=== PATIENT | female | born 1990 | race Two or more races ===

== ENCOUNTER 2018-11-03 21:07 | Emergency (ER) | payer OTHER ==
[~2018-11-03] VITALS: Ht 162.6 cm; Wt 81.8 kg
[2018-11-03 21:08] VITALS: BP 141/79
[2018-11-03] MEDS ORDERED: LAMO100T80 PO (22:15)
[2018-11-03] MEDS ORDERED: ADACEL/BOOSTRIX VACCINE (DIPHTH/PERTUSS/ACELL/TETANUS)0.5ML SYR (90715) IM ONE (22:15)
[2018-11-03] MEDS ORDERED: NEOSPORIN OINT 0.9 GM PKT (FLOOR STOCK) TOP ONE (22:30)
[2018-11-03] MEDS ORDERED: LIDOCAINE 2% MDV 20 ML VIAL SC ONE (22:30)
== END 2018-11-04 00:03 | disposition home or self-care (01) ==
LOC: M ED 21:07
DX: S61.210A Laceration without foreign body of right index finger without damage to nail, initial encounter (principal); W27.8XXA Contact with other nonpowered hand tool, initial encounter; Y93.D2 Activity, sewing; Y92.9 Unspecified place or not applicable; F31.9 Bipolar disorder, unspecified; Z79.899 Other long term (current) drug therapy

== ENCOUNTER 2020-06-12 21:09 | Inpatient (IN) | payer OTHER ==
[~2020-06-12] VITALS: Ht 162.6 cm; Wt 87.8 kg
[~2020-06-12 21:09] MED LIST: LAMO100T80 PO
[2020-06-12] MEDS ORDERED: LIDOCAINE W/EPINEPHRINE 1% 20ML VIAL SC ONE (21:25)
[2020-06-12] MEDS ORDERED: LORazepam 2 MG/ML VIAL As Ordered ONE (21:32)
[2020-06-12] MEDS ORDERED: LORazepam 2 MG/ML VIAL IV STA ×3 (21:32→21:55)
[2020-06-12 22:24] LABS: HEMATOCRIT 35.8 % (36.0-47.0); HEMOGLOBIN 11.1 g/dl (12.0-15.5); MEAN CORPUSCULAR HEMOGLOBIN 27.5 pg (27.0-33.0); MEAN CORPUSCULAR VOLUME 88.6 fl (80.0-96.0); PLATELET COUNT, AUTOMATED 272 10^3/uL (150-450); RED BLOOD COUNT 4.04 10^6/uL (4.00-5.40); WHITE BLOOD COUNT 6.2 10^3/uL (4.0-10.0)
[2020-06-12 22:58] LABS: ACETAMINOPHEN LEVEL < 2.0 UG/ML (10.0-30.0); ALBUMIN 3.8 GM/DL (3.2-5.2); ALT/SGPT 36 U/L (12-78); BILIRUBIN,DIRECT < 0.1 MG/DL (0.0-0.2); BILIRUBIN,TOTAL 0.4 MG/DL (0.2-1.0); BLOOD UREA NITROGEN 5 MG/DL (7-18); CALCIUM LEVEL 8.6 MG/DL (8.5-10.1); CARBON DIOXIDE LEVEL 24 MEQ/L (21-32); CHLORIDE LEVEL 112 MEQ/L (98-107); CREATININE FOR GFR 0.52 MG/DL (0.55-1.30); ETHYL ALCOHOL (ETHANOL) 0.096 % (0.000-0.010); GLOMERULAR FILTRATION RATE > 60.0 (>60); GLUCOSE, FASTING 93 MG/DL (70-100); SALICYLATE LEVEL < 1.7 MG/DL (5.0-30.0); SODIUM LEVEL 144 MEQ/L (136-145); THYROID STIMULATING HORMONE 0.702 uIU/ML (0.358-3.740); TOTAL PROTEIN 7.1 GM/DL (6.4-8.2)
[2020-06-12 23:01] LABS: HCG, SERUM QUALITATIVE NEGATIVE (NEGATIVE)
[2020-06-12 23:56] LABS: AMPHETAMINES LEVEL URINE NEGATIVE (NEGATIVE); BARBITURATES URINE NEGATIVE (NEGATIVE); BENZODIAZEPINES URINE NEGATIVE (NEGATIVE); CANNABINOIDS URINE NEGATIVE (NEGATIVE); COCAINE METABOLITE URINE NEGATIVE (NEGATIVE); METHADONE URINE NEGATIVE (NEGATIVE); OPIATES URINE NEGATIVE (NEGATIVE); PHENCYCLIDINE URINE NEGATIVE (NEGATIVE)
[2020-06-13] MEDS ORDERED: LAMI25TA PO (13:10)
[2020-06-13] MEDS ORDERED: LAMO200T3 PO (13:10)
--- NOTE | 2020-06-13 15:28 | ECGEPIP ---
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
[2020-06-13] MEDS ORDERED: MAALOX 30 ML SUSP *UDC PO PRN (16:10)
[2020-06-13] MEDS ORDERED: traZODone 50 MG TAB PO PRN (16:10)
[2020-06-13] MEDS ORDERED: MOM 30ML SUSPENSION UDC PO PRN (16:10)
[2020-06-13] MEDS ORDERED: MULT1CHW29 PO (16:17)
[2020-06-14 06:00] VITALS: BP 138/72
--- NOTE | 2020-06-14 12:35 | MHHPE ---
[facility] HISTORY AND PHYSICAL DATE OF ADMISSION: 06/13/2020 IDENTIFYING DATA: She is a 30-year-old female, , living with her with a spouse who is active-duty soldier. She works at [employer]. Was admitted for possible suicide attempt. CHIEF COMPLAINT: "I cut my wrist. We had an argument." HISTORY OF PRESENT ILLNESS: Patient was picked up on the roadside with her slit right wrist with a slip box changer, which she had wrapped, and she was brought to the hospital. Patient reports she had an argument with her . She found a few pictures of girls on his phone, got upset. She wanted to go and see her family in [place]. Her was to drop her at the airport in [place]. On the way, there was an argument again. She got down from the car, started walking, and the police came and found her and was brought to the hospital. She has history of bipolar disorder. She was on Lamictal 225 mg once daily. She stopped taking her medication for about 2 weeks. She reports she has been depressed for the last 5-6 months. She feels hopeless and helpless at times. She has a history of mood swings. When she is in her manic episode, she cleans her house, buys a lot of things. She takes her dog for a walk for hours. PAST PSYCHIATRIC HISTORY: This is her first psychiatric hospitalization. She had suicide attempt when she was an 20-year-old. She overdosed on pills; however, patient has self-mutilation. She has habit of cutting her arm. DRUG/ALCOHOL HISTORY: Patient drinks alcohol once a week, about four cans of beer. Patient drank alcohol this time before she cut her arm. MEDICAL HISTORY: Denied medical problems. FAMILY HISTORY: Denies family history of mental illness. PERSONAL HISTORY: She was raised by her grandmother mostly and sometimes by her mother. She has high school degree. 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 Denies any physical or sexual abuse. MENTAL STATUS EXAMINATION: Casually dressed in hospital gown. Cooperative, very labile. Mood is depressed. Psychomotor activity is retarded. Speech rate, rhythm, volume are good. Thought process linear, goal directed. Thought content: Denies any suicidal or homicidal ideas. Denied any hallucinations. VITAL SIGNS: Pulse is 97.4, respiratory rate is 63, blood pressure is 138/72, respiratory rate is 18, pulse oximetry is 100. LABORATORY DATA: CBC within normal limits. Chemistry within normal limits. Blood alcohol was high.. REVIEW OF SYSTEMS: CONSTITUTIONAL: No night sweats, no weight loss, no fever. HEENT: Negative for epistaxis, headache, hearing loss. RESPIRATORY: No cough. No shortness of breath. CARDIOVASCULAR: Negative for chest pain, dyspnea. GASTROINTESTINAL: No abdominal pains. No change in bowel habits. GENITOURINARY: No dysuria, no trouble voiding or hematuria. MUSCULOSKELETAL: Negative for gait disturbances, joint pain. NEUROLOGIC: Negative for gait disturbances, numbness, tingling. DIAGNOSIS: Bipolar disorder, depressed, rule out alcohol use disorder. PLAN: 1. Admit to inpatient mental health unit ([facility]). 2 She will be followed up hospitalist for medical needs. 3. She will be kept on suicide watch. 4. She will attend individual, group, and milieu therapy. She will attend activities. MEDICATIONS: Lamictal 225 mg at night and add Paxil 10 mg in the morning. ESTIMATED LENGTH OF STAY: 4-5 days. TIME SPENT: 30 minutes. MTDD
[2020-06-14] MEDS: lamoTRIgine 100MG TAB PO SCH (13:10)
[2020-06-14] MEDS: lamoTRIgine 25MG TAB PO SCH (13:10)
--- NOTE | 2020-06-14 14:52 | HPEPDOC ---
[facility] Medical History & Physical Date of Admission Jun 13, 2020 Date of Service: Jun 14, 2020 History and Physical Chief complaint: Who presented to the ER with suicidal attempt History of present illness: Patient is a 30-year-old female who presented to the emergency room after attempting suicide by slitting her right wrist. Patient was admitted to the inpatient mental health unit under the care of psychiatry. Hospitalist service was consulted for medical screening evaluation. Patient reports a mild headache. Denies any nausea, vomiting, chest pain, shortness breath, palpitations. Has not experience any abdominal pain consultation, diarrhea, or urinary discomfort. Denies any recent fevers or chills. Reports that her weight and appetite have been fairly consistent. Past Medical History: Bipolar disorder Past Surgical History: No significant past surgical history Allergies: See below Medications: See below Family History: - Mother with history of diabetes Social History: - Denies the use of illicit drugs; patient reports that she uses and he cigarettes regularly and drinks 4 beers weekly - Denies recent travel or sick contacts - Lives with on [address] - Occupation; patient reports that she works at [employer] Review of Systems: 10 point review of systems complete, all negative otherwise stated in HPI Physical exam: - Vitals: BP [138/72], HR [63], RR [18], Sat [100%RA], Temp [97.4F] - General: Lying in bed, Speaking in full sentences, AAOx3 - HEENT: NC, AT, PERRLA - CVS: RRR, +S1S2 - Lungs: Fair air entry bilaterally, No appreciable wheezing / rales / rhonchi - Abdomen: Soft, Non-distended, Non-tender - Extremities: No lower extremity edema, No calf tenderness, R wrist with laceration (appears clean with 7 sutures noted; no erythema, warmth or drainage noted) - Neuro: No focal motor or sensory deficit - Skin: No visible rashes Labs: See below Imaging: See below EKG: See below Assessment and Plan: Suicidal attempt - Patient was admitted to the inpatient mental health unit under the care of psychiatry - Currently being managed by psychiatry Right wrist laceration - Wound appears clean without any evidence of erythema, warmth or drainage - No evidence of infection Bipolar disorder - Currently being managed by psychiatry DVT prophylaxis - Will continue with early ambulation Female tuck pointer helper was present for the duration of this history and physical examination Thank you for this consultation; hospitalist service will now sign off, please reconsult as needed Vital Signs Vital Signs Date Time Temp Pulse Resp B/P (MAP) Pulse Ox O2 Delivery O2 Flow Rate FiO2 06/14/20 06:00 97.4 63 18 138/72 (94) 100 06/13/20 18:07 Room Air Laboratory Data Microbiology Microbiology 06/13/20 Respiratory Virus Panel (PCR) ([facility]) - Final, Complete Home Medications Scheduled Lamotrigine (Lamotrigine) 200 Mg Tablet, 200 MG PO DAILY TAKE WITH 25MG TAB. TOTAL OF 225 MG Lamotrigine (Lamictal) 25 Mg Tablet, 25 MG PO DAILY TAKE WITH 200MG TAB. TOTAL OF 225 MG Multivit-Minerals/Folic Acid (Women's Multivitamin Gummies) 200 Mcg Tab.chew, 1 TAB PO DAILY Allergies Coded Allergies: No Known Allergies (Unverified , 11/03/18) MYRTLE WHEELER MD Jun 14, 2020 14:52
[2020-06-14 18:00] VITALS: BP 108/52
[2020-06-15 06:48] VITALS: BP 100/51
[2020-06-15] MEDS: PARoxetine 10MG TABLET PO SCH (08:18)
[2020-06-15] MEDS: lamoTRIgine 25MG TAB PO SCH (12:03)
[2020-06-15] MEDS: lamoTRIgine 100MG TAB PO SCH (12:03)
--- NOTE | 2020-06-15 14:25 | MHIPN ---
[facility] PROGRESS NOTE DATE: 06/15/2020 SUBJECTIVE: "I did not take my Paxil, but I'm feeling better." OBJECTIVE: She is a 30-year-old female, , living with her who is an active-duty soldier. She works at [employer]. Was admitted for possible suicide attempt. She cut her wrist. She was picked up by police at the roadside. She reported that because she had an argument with her , she cut her wrist while they were driving to go to [facility]. Patient has a history of bipolar disorder. She was on Lamictal. She has stopped taking it for awhile. Currently depressed. She feels hopeless, helpless; however, today she is feeling better. She did not have any mood swings. This is her first psychiatric hospitalization. She has a history of self-mutilation. She had one suicide attempt by overdosing with pills. Patient also has history of drinking alcohol once a week, about four cans of beer. MENTAL STATUS EXAMINATION: Casually dressed in hospital gown. Cooperative. Made good eye contact. Speech rate, rhythm, volume are good. Denied any auditory or visual hallucinations. Denied any suicidal or homicidal ideas. Mood is depressed. Affect is constricted. Memory, immediate, remote, recent, is good. VITAL SIGNS: Temperature 97.4, pulse 52, respirations 18, blood pressure 100/51, pulse oximetry 98. LABORATORY DATA: CBC within normal limits. CMP within normal limits. Her toxicology was 0.096 for alcohol. CURRENT MEDICATIONS: Lamictal 225 mg at bedtime. Patient refused to take Paxil. She will receive individual, group, and milieu therapy. Will be kept on suicide watch. ESTIMATED LENGTH OF STAY: 4-5 days. TIME SPENT: 25 minutes.
[2020-06-15 17:48] VITALS: BP 106/56
[2020-06-16 06:49] VITALS: BP 122/62
[2020-06-16] MEDS: PARoxetine 10MG TABLET PO SCH (09:00)
[2020-06-16] MEDS: lamoTRIgine 25MG TAB PO SCH (11:46)
[2020-06-16] MEDS: lamoTRIgine 100MG TAB PO SCH (11:49)
--- NOTE | 2020-06-16 12:36 | MHIPNPDOC ---
[facility] Progress Note Progress Note DATE OF SERVICE: 06/16/20 SUBJECTIVE: Pt reports she slept well, and less depressed. OBJECTIVE: She is a 30-year-old female, , living with her who is an active-duty soldier. She works at [employer]. Was admitted for possible suicide attempt. She cut her wrist. She was picked up by police at the roadside. She reported that because she had an argument with her , she cut her wrist while they were driving to go to [facility]. Patient has a history of bipolar disorder. She was on Lamictal. She has stopped taking it for awhile. Currently depressed. She feels hopeless, helpless; however, today she is feeling better. She did not have any mood swings. This is her first psychiatric hospitalization. She has a history of self-mutilation. She had one suicide attempt by overdosing with pills. Patient also has history of drinking alcohol once a week, about four cans of beer. pt doing better attending groups. MENTAL STATUS EXAMINATION: Casually dressed in hospital gown. Cooperative. Made good eye contact. Speech rate, rhythm, volume are good. Denied any auditory or visual hallucinations. Denied any suicidal or homicidal ideas. Mood is depressed. Affect is constricted. Memory, immediate, remote, recent, is good. VITAL SIGNS: Temperature 97.4, pulse 52, respirations 18, blood pressure 100/51, pulse oximetry 98. LABORATORY DATA: CBC within normal limits. CMP within normal limits. Her toxicology was 0.096 for alcohol. CURRENT MEDICATIONS: Lamictal 225 mg at bedtime. She will receive individual, group, and milieu therapy. Will be kept on suicide watch. ESTIMATED LENGTH OF STAY: 4-5 days. TIME SPENT: 25 minutes. Vital Signs Vital Signs Date Time Temp Pulse Resp B/P (MAP) Pulse Ox O2 Delivery O2 Flow Rate FiO2 06/16/20 06:49 98.1 51 18 122/62 (82) 99 Room Air Current Medications Current Medications Medications (Trade) Dose Ordered Sig/Avi Route PRN Reason Start Time Stop Time Status Last Admin Dose Admin Acetaminophen (Tylenol Tab) 650 mg Q6HP PRN PO HEADACHE or DISCOMFORT 06/13/20 16:10 Al Hydrox/Mg Hydrox/Simethicone (Mylanta) 30 ml Q4HP PRN PO HEARTBURN/INDIGESTION 06/13/20 16:10 Home Med (Med Rec Complete!) ASDIRECTED XX 06/13/20 16:20 06/13/20 16:26 DC Lamotrigine (LaMICtal) 25 mg DAILY@1200 PO 06/14/20 12:00 06/16/20 11:46 Lamotrigine (LaMICtal) 200 mg DAILY@1200 PO 06/14/20 12:00 06/16/20 11:49 Lorazepam (Ativan) 2 mg STAT STAT IV 06/12/20 21:32 06/12/20 21:33 DC 06/12/20 21:49 Lorazepam (Ativan) 2 mg STAT STAT IV 06/12/20 21:55 06/12/20 21:56 DC 06/12/20 21:57 Lorazepam (Ativan) 2 mg STAT STAT IV 06/12/20 21:55 06/12/20 21:57 DC 06/12/20 21:58 Magnesium Hydroxide (Milk Of Magnesia) 30 ml DAILYPRN PRN PO CONSTIPATION 06/13/20 16:10 Paroxetine HCl (PAXil) 10 mg DAILY PO 06/15/20 09:00 Trazodone HCl (Desyrel) 50 mg QHSP PRN PO INSOMNIA 06/13/20 16:10 Allergies Coded Allergies: No Known Allergies (Unverified , 11/03/18) ANTHONY CAZARES MD Jun 16, 2020 12:36
[2020-06-16 18:50] VITALS: BP 116/71
[2020-06-17 06:11] VITALS: BP 117/55
[2020-06-17] MEDS: PARoxetine 10MG TABLET PO SCH (09:00)
[2020-06-17] MEDS: lamoTRIgine 25MG TAB PO SCH (11:29)
[2020-06-17] MEDS: lamoTRIgine 100MG TAB PO SCH (11:29)
--- NOTE | 2020-06-17 14:00 | MHIPNPDOC ---
[facility] Progress Note Progress Note DATE OF SERVICE: 06/17/20 SUBJECTIVE: Pt reports she slept well, and less depressed. Attends activities and groups. OBJECTIVE: She is a 30-year-old female, , living with her who is an active-duty soldier. She works at [employer]. Was admitted for possible suicide attempt. She cut her wrist. She was picked up by police at the roadside. She reported that because she had an argument with her , she cut her wrist while they were driving [facility] Patient has a history of bipolar disorder. She was on Lamictal. She has stopped taking it for awhile. Currently depressed. She feels hopeless, helpless; however, today she is feeling better. She did not have any mood swings. This is her first psychiatric hospitalization. She has a history of self-mutilation. She had one suicide attempt by overdosing with pills. Patient also has history of drinking alcohol once a week, about four cans of beer. pt doing better attending groups. She is planning on buying airline tickets to [place]. MENTAL STATUS EXAMINATION: Casually dressed in hospital gown. Cooperative. Made good eye contact. Speech rate, rhythm, volume are good. Denied any auditory or visual hallucinations. Denied any suicidal or homicidal ideas. Mood is depressed. Affect is constricted. Memory, immediate, remote, recent, is good. VITAL SIGNS: Temperature 97.4, pulse 52, respirations 18, blood pressure 100/51, pulse oximetry 98. LABORATORY DATA: CBC within normal limits. CMP within normal limits. Her toxicology was 0.096 for alcohol. CURRENT MEDICATIONS: Lamictal 225 mg at bedtime. She will receive individual, group, and milieu therapy. Will be kept on suicide watch. ESTIMATED LENGTH OF STAY: 4-5 days. TIME SPENT: 25 minutes. Vital Signs Vital Signs Date Time Temp Pulse Resp B/P (MAP) Pulse Ox O2 Delivery O2 Flow Rate FiO2 06/17/20 06:11 97.8 64 18 117/55 (75) 100 Room Air Current Medications Current Medications Medications (Trade) Dose Ordered Sig/Avi Route PRN Reason Start Time Stop Time Status Last Admin Dose Admin Acetaminophen (Tylenol Tab) 650 mg Q6HP PRN PO HEADACHE or DISCOMFORT 06/13/20 16:10 Al Hydrox/Mg Hydrox/Simethicone (Mylanta) 30 ml Q4HP PRN PO HEARTBURN/INDIGESTION 06/13/20 16:10 Home Med (Med Rec Complete!) ASDIRECTED XX 06/13/20 16:20 06/13/20 16:26 DC Lamotrigine (LaMICtal) 25 mg DAILY@1200 PO 06/14/20 12:00 06/17/20 11:29 Lamotrigine (LaMICtal) 200 mg DAILY@1200 PO 06/14/20 12:00 06/17/20 11:29 Lorazepam (Ativan) 2 mg STAT STAT IV 06/12/20 21:32 06/12/20 21:33 DC 06/12/20 21:49 Lorazepam (Ativan) 2 mg STAT STAT IV 06/12/20 21:55 06/12/20 21:56 DC 06/12/20 21:57 Lorazepam (Ativan) 2 mg STAT STAT IV 06/12/20 21:55 06/12/20 21:57 DC 06/12/20 21:58 Magnesium Hydroxide (Milk Of Magnesia) 30 ml DAILYPRN PRN PO CONSTIPATION 06/13/20 16:10 Paroxetine HCl (PAXil) 10 mg DAILY PO 06/15/20 09:00 Trazodone HCl (Desyrel) 50 mg QHSP PRN PO INSOMNIA 06/13/20 16:10 Allergies Coded Allergies: No Known Allergies (Unverified , 11/03/18) ANTHONY CAZARES MD Jun 17, 2020 14:00
[2020-06-17 17:41] VITALS: BP 137/73
[2020-06-18] MEDS: ACETAMINOPHEN TAB 650MG DOSE (2X325MG) PO PRN ×2 (05:04→12:00)
[2020-06-18 06:44] VITALS: BP_SYST 123; BP_SYST 127; BP_DIAS 68; BP_DIAS 73
[2020-06-18] MEDS: PARoxetine 10MG TABLET PO SCH (09:00)
[2020-06-18] MEDS: lamoTRIgine 25MG TAB PO SCH (11:25)
[2020-06-18] MEDS: lamoTRIgine 100MG TAB PO SCH (11:25)
[2020-06-18 18:00] VITALS: BP 139/82
[2020-06-19] MEDS: ACETAMINOPHEN TAB 650MG DOSE (2X325MG) PO PRN (03:00)
[2020-06-19 06:54] VITALS: BP 143/70
[2020-06-19] MEDS: PARoxetine 10MG TABLET PO SCH (09:00)
[2020-06-19] MEDS: lamoTRIgine 25MG TAB PO SCH (11:47)
[2020-06-19] MEDS: lamoTRIgine 100MG TAB PO SCH (11:47)
[2020-06-19 18:22] VITALS: BP 135/62
[2020-06-20 06:27] VITALS: BP 142/82
--- NOTE | 2020-06-20 08:52 | MHDS ---
PSYCHIATRIC HOSPITAL DISCHARGE SUMMARY DATE OF ADMISSION: 06/13/2020 DATE OF DISCHARGE: 06/20/2020 DIAGNOSES: 1. Bipolar 2 disorder. 2. Rule out alcoholic disorder. IDENTIFYING DATA: This is a 30-year-old female, , living with her , spouse an activity duty soldier, was admitted because of suicidal thoughts and cutting wrists after an argument with her . For details of history of present illness, past psychiatric history, personal history, medical history, social history, substance abuse history, please refer to initial evaluation. COURSE IN THE HOSPITAL: The patient initially was depressed. She was labile, crying that she wants to go to [place] where her family lives. She refused to take any antidepressants. She has been on Lamictal. She was noncompliant with it, she started taking it on the unit. She was also provided with individual group and Milieu therapy. She made gradual recovery. Her sleep improved. She started attending activities. Denied any side effects of the medications. She was stable at the time of discharge. MENTAL STATUS EXAMINATION: Causally dressed, mildly obese, cooperative, made good eye contact. Psychomotor activity is normal. Mood is euthymic. Affect is broad range . Denied any auditory hallucinations. Thought content: Denied any suicidal or homicidal ideas. Her insight and judgment are fair. VITAL SIGNS: Temperature 97.5, pulse is 62, respiratory rate is 18, blood pressure is 142/82, pulse oximetry 99%. MEDICATIONS AT THE TIME OF DISCHARGE: Lamotrigine 225 mg daily. PLAN: She will be discharged home. She will be going to [place] to be with her family for some time and then she will return. She will be followed at [facility]. Time spent is less than 30 minutes. [facility]
[2020-06-20] MEDS: PARoxetine 10MG TABLET PO SCH (09:00)
[2020-06-20] MEDS: lamoTRIgine 100MG TAB PO SCH (12:39)
[2020-06-20] MEDS: lamoTRIgine 25MG TAB PO SCH (12:39)
== END 2020-06-20 15:13 | disposition home or self-care (01) | DRG 885 ==
LOC: M ED 21:09 → M ED INP 06-13 16:07 → M PSY 06-13 18:10
PROVIDERS: ADMIT Psychiatry & Neurology Psychiatry; ATTEND Psychiatry & Neurology Psychiatry
DX: F31.30 Bipolar disorder, current episode depressed, mild or moderate severity, unspecified (principal); Z91.5 Personal history of self-harm; F10.10 Alcohol abuse, uncomplicated; F17.210 Nicotine dependence, cigarettes, uncomplicated; S61.511A Laceration without foreign body of right wrist, initial encounter; X78.8XXA Intentional self-harm by other sharp object, initial encounter; Y92.89 Other specified places as the place of occurrence of the external cause; Z91.14 Patient's other noncompliance with medication regimen; Z79.899 Other long term (current) drug therapy; Z20.822 Contact with and (suspected) exposure to COVID-19